=== PATIENT | male | born 1995 | race African-American/Black ===

== ENCOUNTER 2016-10-30 16:49 | Emergency (ER) | payer OTHER ==
[~2016-10-30] VITALS: Ht 170.2 cm; Wt 65.9 kg
[2016-10-30 16:49] VITALS: BP 134/80
[~2016-10-30 16:49] MED LIST: LEXA1TAB2 PO; WELL100T PO
== END 2016-10-30 19:16 | disposition left against medical advice (07) ==
LOC: M ED 16:49
DX: Z53.21 Procedure and treatment not carried out due to patient leaving prior to being seen by health care provider (principal)